=== PATIENT | male | born 1935 | race Caucasian/White ===

== ENCOUNTER 2022-12-04 15:07 | Inpatient (IN) | payer OTHER, MEDICARE ==
[2022-12-04] MEDS ORDERED: Dextrose 5% in Water 1,000 ML IV PRN (18:49)
[2022-12-04] MEDS ORDERED: Ondansetron PF 4 MG/2 ML Vial IVP PRN (18:49)
[2022-12-04] MEDS ORDERED: Dextrose 50% Abboject 50 ML SYRINGE SLOW IVP PRN (18:49)
[2022-12-04] MEDS ORDERED: TETANUS, DIPHTHERIA TOX,ADULT (TDVAX) 0.5 ML VIAL IM ONE (18:49)
[2022-12-04] MEDS ORDERED: Morphine 2 MG/ML VIAL SLOW IVP PRN (18:55)
[2022-12-04] MEDS ORDERED: traMADol HCl 50 MG TAB PO PRN (18:55)
[2022-12-04] MEDS ORDERED: Ibuprofen 200 MG TAB PO SCH (19:00)
[2022-12-04 19:17] VITALS: BMI 30.9
[2022-12-04 19:34] LABS: #Eosinphils 0.1 thou/uL (0.0-0.7); #Lymphocytes 1.1 thou/uL (1.20-3.40); #Monocytes 0.8 thou/uL (0.11-0.59); #Neutrophils 7.8 thou/uL (1.40-6.50); %Basophils 0.3 % (0.0-1.0); %Eosinophils 0.6 % (0.0-10.0); %Neutrophils 80.1 % (42.0-75.0); Hemoglobin 12.9 g/dL (14.0-18.0); Mean Corpuscular HGB CONC 36.3 g/dL (32.0-36.0); Mean Corpuscular Volume 96.4 fl (78.0-98.0); Mean Platelet Volume 7.8 fL (7.4-10.4); Platelet Count 208 10x3/uL (130-400); RBC Distribution Width 12.3 % (11.5-14.5); White Blood Cell (WBC) Count 9.7 10x3/uL (4.8-10.8)
[2022-12-04 19:43] LABS: INR-International Normal Ratio 1.3; PTT 31.2 sec (22.9-36.1); Prothrombin Time 17.2 sec (12.0-14.7)
[2022-12-04 19:50] LABS: ALT (SGPT) 9 U/L (8-55); AST (SGOT) 15 U/L (5-34); Albumin 3.9 g/dL (3.4-4.8); Alkaline Phosphatase 67 U/L (40-110); Anion Gap 14 mmol/L (10-20); BUN (Urea Nitrogen) 31 mg/dL (8.4-25.7); Bilirubin, Total 1.2 mg/dL (0.2-1.2); Calc. Creatinine Clearance 31 mL/min (70-130); Calcium 8.9 mg/dL (7.8-10.44); Carbon Dioxide 23 mmol/L (23-31); Chloride 104 mmol/L (98-107); Estimated GFR 24; Globulin 2.6 g/dL (2.4-3.5); Glucose 163 mg/dL (83-110); Magnesium 1.9 mg/dL (1.6-2.6); Phosphorus 2.6 mg/dL (2.3-4.7); Potassium 3.4 mmol/L (3.5-5.1); Protein, Total 6.5 g/dL (5.8-8.1); Sodium 138 mmol/L (136-145)
[2022-12-04] MEDS: Acetaminophen 325 MG TAB PO SCH (20:57)
[2022-12-04] MEDS: traMADol HCl 50 MG TAB PO SCH (20:57)
[2022-12-04] MEDS: Carvedilol 6.25 MG TAB PO SCH (20:57)
[2022-12-04] MEDS: Atorvastatin Calcium 40 MG TAB PO SCH (20:58)
[2022-12-04] MEDS ORDERED: Famotidine 20 MG TAB PO SCH (21:00)
[2022-12-05] MEDS: Acetaminophen 325 MG TAB PO SCH ×4 (01:41→19:40)
[2022-12-05] MEDS: traMADol HCl 50 MG TAB PO SCH ×4 (01:42→19:40)
[2022-12-05] MEDS: Sodium Chloride 0.9% 1,000 ML IV SCH ×2 (01:43→18:13)
[2022-12-05] MEDS: Levothyroxine Sodium 25 MCG TAB PO SCH (06:03)
[2022-12-05] MEDS: Famotidine 20 MG TAB PO SCH (08:32)
[2022-12-05] MEDS: Carvedilol 6.25 MG TAB PO SCH ×2 (08:32→21:07)
[2022-12-05] MEDS: Ascorbic Acid 500 mg Chewable Tablet PO SCH (08:33)
[2022-12-05] MEDS ORDERED: HumaLOG 300 UNITS/3 ML VIAL SC PRN (08:40)
[2022-12-05] MEDS: Ferrous Sulfate 325 MG TAB PO SCH ×3 (12:14→19:41)
[2022-12-05] MEDS: Atorvastatin Calcium 40 MG TAB PO SCH (21:07)
[2022-12-06] MEDS: traMADol HCl 50 MG TAB PO SCH ×4 (00:33→18:41)
[2022-12-06] MEDS: Acetaminophen 325 MG TAB PO SCH ×4 (00:33→18:42)
[2022-12-06] MEDS: Sodium Chloride 0.9% 1,000 ML IV SCH ×2 (00:36→15:42)
[2022-12-06] MEDS: Levothyroxine Sodium 25 MCG TAB PO SCH (06:28)
[2022-12-06 07:09] LABS: #Eosinphils 0.4 thou/uL (0.0-0.7); #Lymphocytes 1.3 thou/uL (1.20-3.40); #Monocytes 0.8 thou/uL (0.11-0.59); %Basophils 0.1 % (0.0-1.0); %Lymphocytes 16.7 % (21.0-51.0); %Monocytes 11.2 % (0.0-10.0); Hemoglobin 12.9 g/dL (14.0-18.0); Mean Corpuscular HGB CONC 34.7 g/dL (32.0-36.0); Mean Corpuscular Hemoglobin 32.8 pg (27.0-31.0); Mean Corpuscular Volume 94.5 fl (78.0-98.0); Mean Platelet Volume 7.4 fL (7.4-10.4); Platelet Count 210 10x3/uL (130-400); RBC Distribution Width 12.4 % (11.5-14.5); Red Blood Cell (RBC) Count 3.94 mill/uL (4.70-6.10); White Blood Cell (WBC) Count 7.5 10x3/uL (4.8-10.8)
[2022-12-06 07:32] LABS: Anion Gap 15 mmol/L (10-20); BUN (Urea Nitrogen) 29 mg/dL (8.4-25.7); Calc. Creatinine Clearance 34 mL/min (70-130); Calcium 8.9 mg/dL (7.8-10.44); Carbon Dioxide 21 mmol/L (23-31); Chloride 106 mmol/L (98-107); Estimated GFR 27; Glucose 175 mg/dL (83-110); Magnesium 2.1 mg/dL (1.6-2.6); Potassium 3.6 mmol/L (3.5-5.1); Sodium 138 mmol/L (136-145)
[2022-12-06] MEDS ORDERED: Sodium Chloride 0.9% 100 ML ONE (07:52)
[2022-12-06] MEDS ORDERED: CEFAZOLIN 2 GM VIAL ONE (07:52)
[2022-12-06] MEDS ORDERED: CEFAZOLIN 2 GM in Sodium Chloride 0.9% 100 ML IVPB SCH (08:00)
[2022-12-06] MEDS ORDERED: fentaNYL PF 100 MCG/2 ML SYRINGE ONE (08:26)
[2022-12-06] MEDS: Famotidine 20 MG TAB PO SCH (08:48)
[2022-12-06] MEDS: Ferrous Sulfate 325 MG TAB PO SCH ×2 (08:48→18:41)
[2022-12-06] MEDS: Ascorbic Acid 500 mg Chewable Tablet PO SCH (08:48)
[2022-12-06] MEDS ORDERED: Albumin 5% 250 ML ONE (08:49)
[2022-12-06] MEDS ORDERED: Vasopressin 20 UNITS/ML VIAL ONE (08:49)
[2022-12-06] MEDS ORDERED: Lidocaine 1% PF 5 ML VIAL ONE (09:02)
[2022-12-06] MEDS ORDERED: PROPOFOL 200 MG/20 ML VIAL ONE (09:02)
[2022-12-06] MEDS ORDERED: NEOSTIGMINE 3 MG/3 ML SYR 3 MG/3 ML SYRINGE ONE (09:02)
[2022-12-06] MEDS ORDERED: Dexamethasone 20 MG/5 ML VIAL ONE (09:02)
[2022-12-06] MEDS ORDERED: Ondansetron PF 4 MG/2 ML Vial ONE (09:02)
[2022-12-06] MEDS ORDERED: Glycopyrrolate 0.2 MG/ML 5 ML SYRINGE ONE (09:02)
[2022-12-06] MEDS ORDERED: Rocuronium Bromide 10 MG/ML (10ML VIAL) ONE (09:02)
[2022-12-06] MEDS ORDERED: fentaNYL 50 mcg/mL 1 mL Vial ONE ×2 (10:30→10:42)
[2022-12-06] MEDS ORDERED: Promethazine HCl 25 MG/ML VIAL IM PRN (10:30)
[2022-12-06] MEDS ORDERED: Ondansetron HCl/PF 4 MG/2 ML Vial IVP PRN (10:30)
[2022-12-06] MEDS ORDERED: HumaLOG 300 UNITS/3 ML VIAL SC PRN (11:29)
[2022-12-06] MEDS: Carvedilol 6.25 MG TAB PO SCH ×2 (15:39→21:54)
[2022-12-06] MEDS: CEFAZOLIN 2 GM in Sodium Chloride 0.9% 100 ML IVPB SCH (15:42)
[2022-12-06] MEDS: Atorvastatin Calcium 40 MG TAB PO SCH (21:54)
[2022-12-07] MEDS: CEFAZOLIN 2 GM in Sodium Chloride 0.9% 100 ML IVPB SCH (00:41)
[2022-12-07] MEDS: Acetaminophen 325 MG TAB PO SCH ×5 (01:31→22:54)
[2022-12-07] MEDS: traMADol HCl 50 MG TAB PO SCH ×5 (01:31→22:53)
[2022-12-07] MEDS: Sodium Chloride 0.9% 1,000 ML IV SCH ×2 (05:50→17:48)
[2022-12-07 06:19] LABS: #Eosinphils 0.1 thou/uL (0.0-0.7); #Lymphocytes 0.8 thou/uL (1.20-3.40); #Neutrophils 5.7 thou/uL (1.40-6.50); %Basophils 0.4 % (0.0-1.0); %Eosinophils 0.8 % (0.0-10.0); %Monocytes 13.5 % (0.0-10.0); %Neutrophils 75.3 % (42.0-75.0); Mean Corpuscular Volume 94.4 fl (78.0-98.0); Mean Platelet Volume 7.5 fL (7.4-10.4); Platelet Count 191 10x3/uL (130-400); RBC Distribution Width 12.1 % (11.5-14.5); Red Blood Cell (RBC) Count 3.22 mill/uL (4.70-6.10); White Blood Cell (WBC) Count 7.6 10x3/uL (4.8-10.8)
[2022-12-07] MEDS: Levothyroxine Sodium 25 MCG TAB PO SCH (06:34)
[2022-12-07 06:43] LABS: Anion Gap 12 mmol/L (10-20); BUN (Urea Nitrogen) 32 mg/dL (8.4-25.7); Calc. Creatinine Clearance 35 mL/min (70-130); Calcium 8.5 mg/dL (7.8-10.44); Carbon Dioxide 22 mmol/L (23-31); Chloride 106 mmol/L (98-107); Estimated GFR 27; Glucose 192 mg/dL (83-110); Magnesium 1.9 mg/dL (1.6-2.6); Phosphorus 3.1 mg/dL (2.3-4.7); Potassium 4.1 mmol/L (3.5-5.1); Sodium 136 mmol/L (136-145)
[2022-12-07] MEDS: Apixaban 2.5 MG TAB PO SCH ×2 (09:09→19:54)
[2022-12-07] MEDS: Famotidine 20 MG TAB PO SCH (09:09)
[2022-12-07] MEDS: Carvedilol 6.25 MG TAB PO SCH ×2 (09:09→19:55)
[2022-12-07] MEDS: Ascorbic Acid 500 mg Chewable Tablet PO SCH (09:09)
[2022-12-07] MEDS: Ferrous Sulfate 325 MG TAB PO SCH ×2 (09:10→17:57)
[2022-12-07] MEDS ORDERED: Furosemide 20 MG/2 ML VIAL SLOW IVP SCH (13:15)
[2022-12-07 15:18] LABS: Anion Gap 15 mmol/L (10-20); BUN (Urea Nitrogen) 36 mg/dL (8.4-25.7); Calc. Creatinine Clearance 36 mL/min (70-130); Calcium 8.7 mg/dL (7.8-10.44); Carbon Dioxide 20 mmol/L (23-31); Chloride 105 mmol/L (98-107); Estimated GFR 28; Glucose 208 mg/dL (83-110); Potassium 4.2 mmol/L (3.5-5.1); Sodium 136 mmol/L (136-145)
[2022-12-07] MEDS: Atorvastatin Calcium 40 MG TAB PO SCH (19:54)
[2022-12-08] MEDS: Levothyroxine Sodium 25 MCG TAB PO SCH (05:28)
[2022-12-08] MEDS: traMADol HCl 50 MG TAB PO SCH ×3 (05:32→18:15)
[2022-12-08] MEDS: Acetaminophen 325 MG TAB PO SCH ×3 (05:33→18:15)
[2022-12-08 06:50] LABS: #Eosinphils 0.3 thou/uL (0.0-0.7); #Lymphocytes 1.3 thou/uL (1.20-3.40); #Neutrophils 4.1 thou/uL (1.40-6.50); %Basophils 0.1 % (0.0-1.0); %Eosinophils 5.2 % (0.0-10.0); %Lymphocytes 18.9 % (21.0-51.0); %Monocytes 14.8 % (0.0-10.0); Hemoglobin 10.2 g/dL (14.0-18.0); Mean Corpuscular Hemoglobin 33.3 pg (27.0-31.0); Mean Corpuscular Volume 95.2 fl (78.0-98.0); Mean Platelet Volume 7.8 fL (7.4-10.4); Platelet Count 195 10x3/uL (130-400); RBC Distribution Width 12.4 % (11.5-14.5); Red Blood Cell (RBC) Count 3.06 mill/uL (4.70-6.10); White Blood Cell (WBC) Count 6.7 10x3/uL (4.8-10.8)
[2022-12-08] MEDS: Sodium Chloride 0.9% 1,000 ML IV SCH ×2 (08:23→20:31)
[2022-12-08] MEDS: Apixaban 2.5 MG TAB PO SCH ×2 (08:25→20:29)
[2022-12-08] MEDS: Furosemide 40 MG TAB PO SCH (08:25)
[2022-12-08] MEDS: Ascorbic Acid 500 mg Chewable Tablet PO SCH (08:25)
[2022-12-08] MEDS: Carvedilol 6.25 MG TAB PO SCH ×2 (08:25→20:30)
[2022-12-08] MEDS: Famotidine 20 MG TAB PO SCH (08:25)
[2022-12-08] MEDS: Ferrous Sulfate 325 MG TAB PO SCH ×2 (08:25→09:25)
[2022-12-08] MEDS: Atorvastatin Calcium 40 MG TAB PO SCH (20:29)
[2022-12-09] MEDS: Acetaminophen 325 MG TAB PO SCH ×4 (01:46→18:16)
[2022-12-09] MEDS: traMADol HCl 50 MG TAB PO SCH ×3 (01:46→11:38)
[2022-12-09] MEDS: Levothyroxine Sodium 25 MCG TAB PO SCH (05:52)
[2022-12-09] MEDS ORDERED: Insulin Glargine 30 UNITS/0.3 ML VIAL SC SCH (09:00)
[2022-12-09] MEDS ORDERED: Polyethylene Glycol 3350 17 GM Packet PO PRN (09:21)
[2022-12-09 09:22] LABS: #Eosinphils 0.2 thou/uL (0.0-0.7); #Lymphocytes 0.9 thou/uL (1.20-3.40); #Monocytes 1.1 thou/uL (0.11-0.59); #Neutrophils 6.5 thou/uL (1.40-6.50); %Eosinophils 2.8 % (0.0-10.0); %Lymphocytes 10.2 % (21.0-51.0); %Monocytes 12.5 % (0.0-10.0); %Neutrophils 74.5 % (42.0-75.0); Mean Corpuscular HGB CONC 35.3 g/dL (32.0-36.0); Mean Corpuscular Volume 93.7 fl (78.0-98.0); Mean Platelet Volume 7.5 fL (7.4-10.4); Platelet Count 222 10x3/uL (130-400); RBC Distribution Width 12.2 % (11.5-14.5); Red Blood Cell (RBC) Count 3.34 mill/uL (4.70-6.10); White Blood Cell (WBC) Count 8.7 10x3/uL (4.8-10.8)
[2022-12-09 09:42] LABS: Anion Gap 14 mmol/L (10-20); BUN (Urea Nitrogen) 40 mg/dL (8.4-25.7); Calc. Creatinine Clearance 38 mL/min (70-130); Carbon Dioxide 24 mmol/L (23-31); Chloride 102 mmol/L (98-107); Estimated GFR 31; Glucose 230 mg/dL (83-110); Phosphorus 2.9 mg/dL (2.3-4.7); Potassium 3.8 mmol/L (3.5-5.1); Sodium 136 mmol/L (136-145)
[2022-12-09] MEDS: Ascorbic Acid 500 mg Chewable Tablet PO SCH (09:55)
[2022-12-09] MEDS: Carvedilol 6.25 MG TAB PO SCH (09:55)
[2022-12-09] MEDS: Famotidine 20 MG TAB PO SCH (09:55)
[2022-12-09] MEDS: Apixaban 2.5 MG TAB PO SCH (09:55)
[2022-12-09] MEDS: Ferrous Sulfate 325 MG TAB PO SCH (09:55)
[2022-12-09] MEDS: Furosemide 40 MG TAB PO SCH (09:56)
[2022-12-09] MEDS ORDERED: Senokot 8.6 MG TAB PO PRN (09:58)
[2022-12-09] MEDS: Sodium Chloride 0.9% 1,000 ML IV SCH (11:37)
[2022-12-09 17:35] VITALS: BP 143/71; TEMP 97.6
[2022-12-10] MEDS ORDERED: Polyethylene Glycol 3350 17 GM Packet PER TUBE SCH (09:00)
== END 2022-12-09 18:37 | DRG 522 ==
LOC: SJJU 17:29 → SURG B 17:47
PROVIDERS: ADMIT Student in an Organized Health Care Education/Training Program; ATTEND Student in an Organized Health Care Education/Training Program
PROC: 0SRS0JA Replacement of Left Hip Joint, Femoral Surface with Synthetic Substitute, Uncemented, Open Approach (ICD-10-PCS; principal; 2022-12-06)
DX: S72.032A Displaced midcervical fracture of left femur, initial encounter for closed fracture (principal); W01.0XXA Fall on same level from slipping, tripping and stumbling without subsequent striking against object, initial encounter; I25.10 Atherosclerotic heart disease of native coronary artery without angina pectoris; E78.5 Hyperlipidemia, unspecified; F03.90 Unspecified dementia, unspecified severity, without behavioral disturbance, psychotic disturbance, mood disturbance, and anxiety; E11.65 Type 2 diabetes mellitus with hyperglycemia; Z95.1 Presence of aortocoronary bypass graft; Z79.01 Long term (current) use of anticoagulants
CPT/HCPCS: 36415; 36416; 71045; 72170; 80048; 80053; 83735; 84100; 85025; 85610; 85730; C1713; C1776; J1100; J1940; J2405; J2704; J3010; J3490; J7050; P9045

== ENCOUNTER 2024-01-29 18:41 | Inpatient (IN) | payer MEDICARE ==
[2024-01-30] MEDS ORDERED: Acetaminophen 325 MG TAB PO PRN (03:29)
[2024-01-30 03:38] VITALS: BMI 27.8
[2024-01-30] MEDS: HYDROcodone/Acetaminophen 5/325 mg Tablet PO PRN (03:58)
[2024-01-30] MEDS: cefTRIAXone\\ROCEPHIN 1 GM in Sodium Chloride 0.9% 100 ML IVPB SCH (03:59)
[2024-01-30] MEDS ORDERED: Dextrose 50% Abboject 50 ML SYRINGE SLOW IVP PRN (04:00)
[2024-01-30] MEDS ORDERED: HumaLOG 300 UNITS/3 ML VIAL SC PRN (04:00)
[2024-01-30] MEDS ORDERED: Glucagon 1 MG/ML KIT IM PRN (04:00)
[2024-01-30] MEDS ORDERED: Dextrose 5% in Water 1,000 ML IV PRN (04:00)
[2024-01-30] MEDS: Doxycycline 100 MG in Sodium Chloride 0.9% 100 ML IVPB SCH (04:39)
[2024-01-30 04:40] LABS: #Basophils Less than 0.03 10x3/uL (0.0-0.2); %Basophils 0.2 % (0.0-1.0); %Eosinophils 1.5 % (0.0-10.0); %Lymphocytes 11.2 % (21.0-51.0); %Monocytes 9.6 % (0.0-10.0); %Neutrophils 76.9 % (42.0-75.0); Hematocrit 38.6 % (42.0-52.0); Hemoglobin 12.9 g/dL (14.0-18.0); Mean Corpuscular HGB CONC 33.4 g/dL (32.0-36.0); Mean Corpuscular Hemoglobin 31.9 pg (27.0-31.0); Mean Corpuscular Volume 95.5 fL (78.0-98.0); Mean Platelet Volume 9.6 fL (7.4-10.4); Platelet Count 286 10x3/uL (130-400); RBC Distribution Width 13.5 % (11.5-14.5); Red Blood Cell (RBC) Count 4.04 mill/uL (4.70-6.10)
[2024-01-30 04:55] LABS: ALT (SGPT) 10 U/L (8-55); AST (SGOT) 12 U/L (5-34); Albumin 3.5 g/dL (3.4-4.8); Alkaline Phosphatase 87 U/L (40-110); Anion Gap 19 mmol/L (10-20); BUN (Urea Nitrogen) 46 mg/dL (8.4-25.7); Bilirubin, Total 0.8 mg/dL (0.2-1.2); Calc. Creatinine Clearance 27 mL/min (70-130); Carbon Dioxide 15 mmol/L (23-31); Chloride 107 mmol/L (98-107); Estimated GFR 24; Globulin 3.3 g/dL (2.4-3.5); Glucose 243 mg/dL (83-110); Potassium 4.2 mmol/L (3.5-5.1); Protein, Total 6.8 g/dL (5.8-8.1); Sodium 137 mmol/L (136-145)
[2024-01-30 05:18] LABS: Bacteria/HPF None Seen HPF (None Seen); Bilirubin Negative (Negative); Blood, Urine 3+ (Negative); Clarity Clear (Clear); Glucose, Urine (Dipstick) Normal (Negative); Ketone, Urine Negative (Negative); Leukocyte Negative Leu/uL (Negative); Nitrite Negative (Negative); Protein, Urine (Dipstick) Negative (Neg-Trace); RBC/HPF Greater than 50 HPF (0-3); Specific Gravity, Urine 1.013 (1.002-1.036); Squamous Epithelial 0-3 HPF (0-3); Urobilinogen Normal mg/dL (Less than 2); pH, Urine 5.5 (5.0-9.0)
[2024-01-30] MEDS: Levothyroxine Sodium 25 MCG TAB PO SCH (06:03)
[2024-01-30] MEDS: Dronedarone HCl 400 MG TAB PO SCH (08:12)
[2024-01-30] MEDS: Clopidogrel Bisulfate 75 MG TAB PO SCH (08:12)
[2024-01-30] MEDS: Cyanocobalamin (Vitamin B-12) 1,000 MCG TAB PO SCH (08:12)
[2024-01-30] MEDS: Isosorbide Mononitrate 30 MG ER.TAB PO SCH (08:12)
[2024-01-30] MEDS: Ascorbic Acid 500 mg Chewable Tablet PO SCH (08:12)
[2024-01-30] MEDS: Pantoprazole DR 40 MG TAB PO SCH (08:12)
[2024-01-30] MEDS: Apixaban 2.5 MG TAB PO SCH (08:13)
[2024-01-30] MEDS: Allopurinol 300 MG TAB PO SCH (08:13)
[2024-01-30] MEDS ORDERED: Furosemide 40 MG TAB PO SCH (09:00)
[2024-01-30] MEDS: Carvedilol 6.25 MG TAB PO SCH (15:14)
[2024-01-30] MEDS ORDERED: Lorazepam 2 MG/ML VIAL SLOW IVP SCH ×2 (15:30)
[2024-01-30] MEDS ORDERED: oxyCODONE 5 MG TAB PO PRN (15:34)
[2024-01-30 17:06] LABS: Troponin I 0.047 ng/mL (< 0.028)
[2024-01-30] MEDS: HumaLOG 300 UNITS/3 ML VIAL SC PRN (17:32)
[2024-01-30] MEDS: Acetaminophen 500 MG TAB PO SCH (20:43)
[2024-01-30] MEDS: Sodium Bicarbonate Tab 325 MG TAB PO SCH (20:43)
[2024-01-30] MEDS: Atorvastatin Calcium 40 MG TAB PO SCH (20:43)
[2024-01-30 22:25] LABS: Troponin I 0.054 ng/mL (< 0.028)
[2024-01-31 06:07] LABS: #Basophils Less than 0.03 10x3/uL (0.0-0.2); %Basophils 0.1 % (0.0-1.0); %Monocytes 10.7 % (0.0-10.0); %Neutrophils 75.7 % (42.0-75.0); Hematocrit 36.4 % (42.0-52.0); Hemoglobin 11.9 g/dL (14.0-18.0); Mean Corpuscular HGB CONC 32.7 g/dL (32.0-36.0); Mean Corpuscular Hemoglobin 30.6 pg (27.0-31.0); Mean Corpuscular Volume 93.6 fL (78.0-98.0); Platelet Count 277 10x3/uL (130-400); RBC Distribution Width 13.6 % (11.5-14.5); Red Blood Cell (RBC) Count 3.89 mill/uL (4.70-6.10)
[2024-01-31 06:16] LABS: Anion Gap 15 mmol/L (10-20); BUN (Urea Nitrogen) 37 mg/dL (8.4-25.7); Calc. Creatinine Clearance 32 mL/min (70-130); Carbon Dioxide 20 mmol/L (23-31); Chloride 106 mmol/L (98-107); Estimated GFR 30; Glucose 203 mg/dL (83-110); Potassium 4.5 mmol/L (3.5-5.1); Sodium 136 mmol/L (136-145)
[2024-01-31] MEDS ORDERED: Lorazepam 2 MG/ML VIAL IM SCH ×2 (16:21)
[2024-01-31] MEDS: Doxycycline 100 MG CAP PO SCH (21:22)
[2024-02-01] MEDS: Cefdinir 300 MG CAP PO SCH (05:32)
[2024-02-01 06:14] LABS: #Basophils Less than 0.03 10x3/uL (0.0-0.2); %Basophils 0.1 % (0.0-1.0); %Eosinophils 2.4 % (0.0-10.0); %Lymphocytes 14.6 % (21.0-51.0); %Monocytes 12.8 % (0.0-10.0); %Neutrophils 69.7 % (42.0-75.0); Hematocrit 35.3 % (42.0-52.0); Hemoglobin 11.7 g/dL (14.0-18.0); Mean Corpuscular HGB CONC 33.1 g/dL (32.0-36.0); Mean Corpuscular Hemoglobin 31.5 pg (27.0-31.0); Mean Corpuscular Volume 95.1 fL (78.0-98.0); Mean Platelet Volume 9.7 fL (7.4-10.4); Platelet Count 257 10x3/uL (130-400); RBC Distribution Width 13.4 % (11.5-14.5); Red Blood Cell (RBC) Count 3.71 mill/uL (4.70-6.10)
[2024-02-01 06:34] LABS: Anion Gap 14 mmol/L (10-20); BUN (Urea Nitrogen) 37 mg/dL (8.4-25.7); Calc. Creatinine Clearance 28 mL/min (70-130); Calcium 8.9 mg/dL (7.8-10.44); Carbon Dioxide 20 mmol/L (23-31); Chloride 106 mmol/L (98-107); Estimated GFR 25; Glucose 216 mg/dL (83-110); Potassium 4.4 mmol/L (3.5-5.1); Sodium 136 mmol/L (136-145)
[2024-02-01] MEDS ORDERED: Regadenoson 0.4 MG/5 ML SYRINGE ONE (10:22)
[2024-02-01 16:04] VITALS: BP 133/58; TEMP 97.5
== END 2024-02-01 16:25 | disposition home or self-care (01) | DRG 194 ==
LOC: 2SW 01-30 03:19 → OBSVTOIN 01-30 15:38
PROVIDERS: ADMIT Family Medicine; ATTEND Hospitalist
DX: J18.9 Pneumonia, unspecified organism (principal); E87.20 Acidosis, unspecified; I13.0 Hypertensive heart and chronic kidney disease with heart failure and stage 1 through stage 4 chronic kidney disease, or unspecified chronic kidney disease; I50.22 Chronic systolic (congestive) heart failure; N17.9 Acute kidney failure, unspecified; I48.20 Chronic atrial fibrillation, unspecified; N18.4 Chronic kidney disease, stage 4 (severe); I25.5 Ischemic cardiomyopathy; I25.10 Atherosclerotic heart disease of native coronary artery without angina pectoris; E11.22 Type 2 diabetes mellitus with diabetic chronic kidney disease; G62.9 Polyneuropathy, unspecified; M51.37 Other intervertebral disc degeneration, lumbosacral region; M48.061 Spinal stenosis, lumbar region without neurogenic claudication; M48.07 Spinal stenosis, lumbosacral region; E03.9 Hypothyroidism, unspecified; M10.9 Gout, unspecified; I25.2 Old myocardial infarction; Z95.5 Presence of coronary angioplasty implant and graft; Z79.899 Other long term (current) drug therapy; Z79.890 Hormone replacement therapy; Z79.01 Long term (current) use of anticoagulants; Z79.02 Long term (current) use of antithrombotics/antiplatelets
CPT/HCPCS: 36415; 36416; 72131; 72148; 74176; 78452; 80048; 80053; 81001; 82550; 84145; 85025; 86140; 87040; 93017; 93970; 94760; 96374; 96375; A9502; G0378; J0696; J1815; J2785; J3490